=== PATIENT | female | born 1945 | race Caucasian/White ===

== ENCOUNTER 2020-10-29 05:29 | Day surgery (SDC) | payer MEDICARE, BC ==
[2020-10-24 12:09] LABS: BASOPHILS % (AUTO) 0.2 % (0-1); EOSINOPHILS # (AUTO) 0.1 X10'3 (0-0.9); LYMPHOCYTES # (AUTO) 1.7 X10'3 (1.1-4.8); LYMPHOCYTES % (AUTO) 22.9 % (21-51); MEAN CORPUSCULAR HEMOGLOBIN 33.9 PG (27.0-31.0); MEAN CORPUSCULAR HGB CONC 33.8 g/dL (33.0-36.5); MEAN CORPUSCULAR VOLUME 100.2 FL (78-98); MEAN PLATELET VOLUME 8.1 FL (7.4-10.4); MONOCYTES # (AUTO) 0.7 X10'3 (0-0.9); NEUTROPHILS # (AUTO) 4.8 X10'3 (1.8-7.7); NEUTROPHILS % (AUTO) 64.9 % (42-75); PRE OP HEMATOCRIT 42.2 % (35.0-45.0); PRE OP HEMOGLOBIN 14.3 g/dL (12.0-16.0); PRE OP PLATELET COUNT 238 X10'3 (140-440); RED BLOOD COUNT 4.21 X10'6 (4.20-5.60); RED CELL DISTRIBUTION WIDTH 12.5 % (11.5-14.5)
[2020-10-24 12:10] LABS: CLARITY,URINE CLEAR (Clear); COLOR,URINE YELLOW (Yellow); GLUCOSE, URINE NEGATIVE (Neg); KETONES,URINE NEGATIVE (Neg); LEUKOCYTE ESTERASE ,URINE TRACE (Neg); NITRITES, URINE NEGATIVE (Neg); OCCULT BLOOD,URINE NEGATIVE (Neg); PROTEIN,URINE NEGATIVE (Neg); UROBILINOGEN,URINE 0.2 E.U/dL (0.2-1.0)
[2020-10-24 12:16] LABS: UA COLLECTION TYPE NON-SPECIFIED
[2020-10-24 12:17] LABS: BACTERIA,URINE NONE SEEN /HPF (Neg); MUCUS STRANDS NONE SEEN /LPF (Neg); RBC,URINE 0-2 /HPF (0-2); SQUAMOUS EPITHELIAL CELL,UR FEW /LPF (FEW); WBC,URINE 0-4 /HPF (0-4)
[2020-10-24 12:19] LABS: ALBUMIN 3.9 G/DL (3.4-5.0); ALBUMIN/GLOBULIN RATIO 1.4 (1.1-1.5); ALKALINE PHOSPHATASE 92 IU/L (46-116); BLOOD UREA NITROGEN 31 MG/DL (7-18); BUN/CREATININE RATIO 38.3 (6.6-38.0); CALCIUM 8.7 MG/DL (8.5-10.1); CHLORIDE 107 MMOL/L (99-107); CREATININE 0.81 MG/DL (0.40-0.90); PRE OP ALT 71 U/L (30-65); PRE OP ANION GAP 6 (8-16); PRE OP AST 37 U/L (10-37); PRE OP BILIRUB, TOTAL 0.3 MG/DL (0.0-1.0); PRE OP GLUCOSE 83 MG/DL (70-104); PRE OP POTASSIUM 4.7 MMOL/L (3.4-5.1); PRE OP SODIUM 143 MMOL/L (135-145); TOTAL CARBON DIOXIDE 30.3 MMOL/L (24-32); TOTAL PROTEIN 6.6 G/DL (6.4-8.2); eGFR 69 ML/MIN
[~2020-10-29] VITALS: Ht 157.5 cm; Wt 69.4 kg
[2020-10-29] VITALS (13 sets, daily range): BP systolic 99–149; BP diastolic 65–95
[~2020-10-29 05:29] MED LIST: ATOR20TA PO; ESZO3TAB44 PO; LEVO100T9 PO; OMEP-50 PO; VALA500T PO; VORT20TA PO; ringers solution, lacted 1,000 ML IV SCH
[2020-10-29] MEDS ORDERED: cefazolin/dext.iso 2gm/100ml IV ONE (05:30)
[2020-10-29] MEDS ORDERED: famotidine 20mg tablet PO ONE (05:30)
[2020-10-29] MEDS ORDERED: BUPIVAcaine/PF 2.5 mg/ml (0.25%) 30ml vial ONE (07:20)
[2020-10-29] MEDS ORDERED: fentaNYL /PF 50mcg/ml 5ml ampule ONE (08:02)
[2020-10-29] MEDS ORDERED: midazolam 1 mg/ML 2ml injection ONE (08:02)
[2020-10-29] MEDS ORDERED: sevoflurane 250ml liquid IH ONE (08:08)
[2020-10-29] MEDS ORDERED: ondansetron/PF 4mg/2ml inj ONE (08:38)
[2020-10-29] MEDS ORDERED: propofol inj 20 ML IV ONE (08:38)
[2020-10-29] MEDS ORDERED: LIDOcaine 2% (20mg/ml) 5ml vial ONE (08:38)
[2020-10-29] MEDS ORDERED: rocuronium 10mg/ml inj IV ONE (08:38)
[2020-10-29] MEDS ORDERED: dexamethasone sod phosphate 4mg/ml inj. ONE (08:38)
[2020-10-29] MEDS ORDERED: ringers solution, lacted 1,000 ML IV SCH (08:45)
[2020-10-29] MEDS ORDERED: proCHLORperazine 10 MG/2 ml inj IV PRN (08:45)
[2020-10-29] MEDS ORDERED: hydrALAZINE 20mg/ml inj. IV PRN (08:45)
[2020-10-29] MEDS ORDERED: meperidine/PF 25mg/ml syringe IV PRN (08:45)
[2020-10-29] MEDS ORDERED: acetaminophen 1,000mg/100ml IV 100 ML IV PRN (08:45)
[2020-10-29] MEDS ORDERED: labetalol 20mg/4ml (5mg/ml) syringe IV PRN (08:45)
[2020-10-29] MEDS ORDERED: HYDROmorphone/PF 0.2 MG/ML SYRINGE IV PRN (08:45)
[2020-10-29] MEDS ORDERED: ondansetron/PF 4mg/2ml inj IV PRN (08:45)
[2020-10-29] MEDS ORDERED: morphine 2 MG/ML inj. syringe IV PRN (08:45)
[2020-10-29] MEDS ORDERED: neostigmine methylsulfate 1 MG/ML 10ml vial ONE (10:21)
[2020-10-29] MEDS ORDERED: glycopyrrolate 0.2mg/ml inj ONE (10:22)
--- NOTE | 2020-10-29 10:35 | NUR ---
Received from OR via JANETTE , accompanied by Anesthesiologist JANET and report given by Anesthesiolgist. PATIENT WITH 3 LAP SITES PRESENT TO ABDOMEN THAT ARE CDI. 10L MASK ON WITH 100% SATRAUTIONS. MEDICATED FOR PAIN UPON ARRIVAL. Addendum: 10/29/20 at 1047 by Patrick Manzano RN, RN Amended: Links added.
[2020-10-29] MEDS: HYDROmorphone/PF 0.2 MG/ML SYRINGE IV PRN ×2 (10:43→10:55)
[2020-10-29] MEDS: morphine 4 MG/ML inj SYRINge IV PRN ×2 (11:06→11:34)
[2020-10-29] MEDS ORDERED: HYDROcodone/acetaminophen 10/325mg tab PO ONE (11:50)
--- NOTE | 2020-10-29 11:50 | NUR ---
ADDENDUM NOTE OF "84% SATRURATIONS". - SATURATIONS ARE 94% ON ROOM AIR Addendum: 10/29/20 at 1153 by Patrick Manzano RN, RN Amended: Links added.
--- NOTE | 2020-10-29 12:15 | NUR ---
ALL DISCHARGE CRITERIA HAS BEEN MET. VSS, PAIN AT A TOLERABLE LEVEL, VOIDING AND ABLE TO SAFELY AMBULATE AND TRANSFER SELF. IV TAKEN OUT WITHOUT ANY COMPLICATIONS. ALL DISCHARGE INSTRUCTIONS COVERED WITH PATIENT AND ALL QUESTIONS ANSWERED. PATIENT TAKEN OUT VIA WHEELCHAIR TO PERSONAL VEHICLE WHERE FAMILY/FRIEND DROVE PATIENT HOME. VSS. TAKEN HOME BY SPOUSE. ALL DRESSING CDI. Addendum: 10/29/20 at 1312 by Patrick Manzano RN, RN Amended: Links added.
== END 2020-10-29 12:15 | disposition home or self-care (01) ==
LOC: PAS 05:29
PROVIDERS: ATTEND Surgery
DX: K43.2 Incisional hernia without obstruction or gangrene (principal); E05.90 Thyrotoxicosis, unspecified without thyrotoxic crisis or storm; F32.9 Major depressive disorder, single episode, unspecified; F41.9 Anxiety disorder, unspecified; E03.9 Hypothyroidism, unspecified; M19.90 Unspecified osteoarthritis, unspecified site; K21.9 Gastro-esophageal reflux disease without esophagitis; Z85.828 Personal history of other malignant neoplasm of skin; Z90.49 Acquired absence of other specified parts of digestive tract; Z98.84 Bariatric surgery status; Z98.890 Other specified postprocedural states; Z87.01 Personal history of pneumonia (recurrent); Z79.899 Other long term (current) drug therapy; Z88.8 Allergy status to other drugs, medicaments and biological substances; Z91.048 Other nonmedicinal substance allergy status; Z91.09 Other allergy status, other than to drugs and biological substances; Z82.49 Family history of ischemic heart disease and other diseases of the circulatory system
CPT/HCPCS: 36415; 49656; 80053; 81001; 82948; 85025; 87088; 93005; C1781; J0131; J1100; J1170; J2001; J2250; J2270; J2405; J2704; J2710; J3010; J3490; A4215; A4618; J7120